=== PATIENT | male | born 1995 | race African-American/Black ===

== ENCOUNTER 2023-05-24 11:54 | Emergency (ER) | payer OTHER ==
[~2023-05-24] VITALS: Ht 190.5 cm; Wt 122.7 kg
[~2023-05-24 11:54] MED LIST: ALBU18HF12 IH
[2023-05-24 11:57] VITALS: TEMP 98
[2023-05-24] MEDS ORDERED: FAMOTIDINE 20 MG/2 ML VIAL ONE (12:11)
[2023-05-24] MEDS ORDERED: DiphenhydrAMINE HCL 50 MG/ML VIAL ONE (12:11)
[2023-05-24] MEDS ORDERED: MethylPREDNISolone SOD SUCC 125 MG/2 ML VIAL ONE (12:11)
[2023-05-24] MEDS: EPINEPHrine 1:1,000 [1 MG/ML] VIAL SQ ONE (12:28)
[2023-05-24] MEDS: FAMOTIDINE 20 MG/2 ML VIAL IVP ONE (12:29)
[2023-05-24] MEDS: MethylPREDNISolone SOD SUCC 125 MG/2 ML VIAL IVP ONE (12:29)
[2023-05-24] MEDS: DiphenhydrAMINE HCL 50 MG/ML VIAL IVP ONE (12:29)
[2023-05-24 14:13] VITALS: BP 107/60; PULSE 65; RESP 14
[2023-05-24] MEDS ORDERED: PRED-554 PO (14:16)
[2023-05-24] MEDS ORDERED: EPIN0.3P3 IM (14:16)
[2023-05-24] MEDS ORDERED: DIPH50CA37 PO (14:16)
== END 2023-05-24 14:49 | disposition home or self-care (01) ==
LOC: EMS 11:56
DX: T78.40XA Allergy, unspecified, initial encounter (principal); J45.909 Unspecified asthma, uncomplicated; Z91.010 Allergy to peanuts; Z91.013 Allergy to seafood; X58.XXXA Exposure to other specified factors, initial encounter
CPT/HCPCS: 99291; 96374; 71045; 96375; 96372; J1200; J0171; J3490; J2930